=== PATIENT | male | born 2000 | race Two or more races ===

== ENCOUNTER 2022-05-14 05:10 | Emergency (ER) | payer MEDICAID ==
[~2022-05-14] VITALS: Ht 172.7 cm; Wt 80.7 kg
[2022-05-14 06:16] LABS: HEMATOCRIT 44.8 % (36.7-47.1); MEAN CORPUSCULAR HEMOGLOBIN 31.2 uug (23.8-33.4); MEAN CORPUSCULAR VOLUME 91.1 fL (73.0-96.2); PLATELET COUNT (AUTO) 270 K/uL (152-348)
[2022-05-14] MEDS ORDERED: BACITRACIN ZINC OINT 15 GM TUBE TOP ONE (06:30)
[2022-05-14 06:38] LABS: CARBON DIOXIDE 24 mmol/L (21-32); CHLORIDE 104 mmol/L (98-107); CREATININE 1.2 mg/dL (0.6-1.3); ETHANOL 101 MG/DL (0-0); GLUCOSE 110 mg/dL (74-106); POTASSIUM 4.1 mmol/L (3.5-5.1); UREA NITROGEN, BLOOD 11 mg/dL (7-18)
[2022-05-14 06:48] LABS: ALANINE AMINOTRANSFERASE 29 U/L (16-63); ALKALINE PHOSPHATASE 89 U/L (50-136); ASPARTATE AMINOTRANSFERASE 17 U/L (15-37); BILIRUBIN,DIRECT 0.1 mg/dL (0.0-0.2); BILIRUBIN,TOTAL 0.6 mg/dL (0.2-1.0)
[2022-05-14 06:49] LABS: ACETAMINOPHEN < 2.0 ug/mL (10-30)
[2022-05-14] MEDS ORDERED: BACITRACIN ZINC OINT 15 GM TUBE ONE (06:53)
--- NOTE | 2022-05-14 07:14 | NUR ---
Patient is resting comfortably in bed with eyes closed Addendum: 05/14/22 at 0715 by TIA Patient is unable to produce urine at this time.
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
--- NOTE | 2022-05-14 08:00 | NUR ---
Provided warm meal.
--- NOTE | 2022-05-14 08:47 | NUR ---
urine sent to lab.
--- NOTE | 2022-05-14 09:26 | NUR ---
Cristina risk assessment 30 (Secondary diagnosis as alcohol intoxication/ over-estimates... Relayed to Mehul/ Perinatology Physician.
--- NOTE | 2022-05-14 09:32 | NUR ---
Pt says he has desire to kill himself with pills. He thinks he can succeed in taking diabetic pills of his step-mother. Pt has 3 other brothers from the same parents. He has is not in school, no constant work and says that he's not closed to his own family. His mother when he was 3 months old. His current step Mom is his 4th. 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 He denies suffering loss within the last year. No family and friends , no loss of function or identity. 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 Pt denies harming other people, specifically his family at this time.
--- NOTE | 2022-05-14 10:02 | NUR ---
Mehul security site supervisor aware that pt is on 5150 DTS/DTO. No sitter available at this time. No director of security available to be in pt's room at this time. armed security guard within 20 feet distance from pt's room by the ER entrance. All staff take turns in sitting with the patient.
[2022-05-14 10:10] LABS: *BILIRUBIN,URIN NEGATIVE (NEGATIVE); *BLOOD, URINE NEGATIVE (NEGATIVE); *CLARITY,URINE CLEAR (CLEAR); *COLOR,URINE YELLOW (YELLOW); *KETONES,URINE NEGATIVE (NEGATIVE); *UROBILINOGEN,URINE 0.2 E.U./dl (NORMAL); LEUKOCYTE ESTERASE ,URINE NEGATIVE (NEGATIVE); NITRITE, URINE NEGATIVE (NEGATIVE); PH,URINE 5.5 (5.0-8.0); UGLUCOSE NEGATIVE (NEGATIVE)
[2022-05-14 10:23] LABS: *AMPHETAMINE, URINE NEGATIVE (NEGATIVE); *CANNABINOID, URINE POSITIVE (NEGATIVE); *COCCAINE, URINE NEGATIVE (NEGATIVE); *OPIATE, URINE NEGATIVE (NEGATIVE); *PHENCYCLIDINE SCREEN,URINE NEGATIVE (NEGATIVE)
--- NOTE | 2022-05-14 10:30 | NUR ---
Pt started with 1:1 Barbara hawthorne.
--- NOTE | 2022-05-14 14:57 | NUR ---
Placed a call to the crisis team manager valuation: Milton Shannon . ETA 45 mins.
--- NOTE | 2022-05-14 15:36 | NUR ---
Milton/AGATA at the bedside for crisis eval.
--- NOTE | 2022-05-14 19:00 | NUR ---
Spoke with Gabbi, Charge nurse in [facility] Adult unit and no bed available at this time. She says to try tomorrow morning. Addendum: 05/14/22 at 1945 by GEOVANNA Spoke with Gabbi/ [facility] of [facility] (Adult [phone]; no available beds at this time. She says to try in the AM.
--- NOTE | 2022-05-14 19:43 | NUR ---
Cleansed abrasions on bilateral knees with NS. Swabbed with betadine and left open to air.
--- NOTE | 2022-05-14 20:00 | NUR ---
One of the brothers of the patient is at the bedside. He wanted to bring the patient home and explained to him that the patient was placed on a hold and verbalizes understanding.
--- NOTE | 2022-05-14 22:45 | NUR ---
Placed a call at [facility] . Was advised to call tomorrow after 9am.
--- NOTE | 2022-05-14 23:03 | NUR ---
Placed a call at [facility] [place] [address], [address], [place] [address] . Spoke with Jesus Powell at and faxed pt's info at .
--- NOTE | 2022-05-14 23:38 | NUR ---
Contacted Intake of [facility]) and confirmed receipt of 22 pages of pt's report summary, face sheet, [employer] hold and crisis team hold. Kristian, the incoming shift Intake will review the referral.
--- NOTE | 2022-05-15 01:00 | NUR ---
F/u review of referral in [facility] with Intake Kristian. No further requirements at this time.
--- NOTE | 2022-05-15 01:18 | NUR ---
Provided fresh gown and personal items to get a better hygiene and patient complied and remained calm and cooperative.
--- NOTE | 2022-05-15 02:37 | NUR ---
RE: TRANSFER. Spoke with Kristian/ Jesus. Pt will be transferred at [facility]. [id number] [place] [address]. Accepting MD: Dr. Hernández. Report nurse to nurse available at 0330 at .
--- NOTE | 2022-05-15 03:00 | NUR ---
Placed a call to [facility] for [facility] transport and spoke with Daniel. ETA is 0900.
--- NOTE | 2022-05-15 03:30 | NUR ---
Gj7pope given to MARANDA Hilario/ Hayley Claire.
--- NOTE | 2022-05-15 04:53 | NUR ---
Pt's easily arousable. Remained cooperative.
--- NOTE | 2022-05-15 05:04 | NUR ---
Contacted [facility] and verified that there's no specific room or building.
--- NOTE | 2022-05-15 07:26 | NUR ---
recieved patient from MARANDA Ridley in stable condition. Per Khai pt to be transfered to [facility] via [facility] transport, ETA 0900.
--- NOTE | 2022-05-15 09:15 | NUR ---
[facility] unit [id number] has arrived to transport patient to [facility]. Pt in stable condition, report and documents given to transport team.
== END 2022-05-15 09:15 ==
LOC: ER 05:40
DX: R45.851 Suicidal ideations (principal); R45.850 Homicidal ideations; F10.129 Alcohol abuse with intoxication, unspecified; Y90.5 Blood alcohol level of 100-119 mg/100 ml; S10.91XA Abrasion of unspecified part of neck, initial encounter; S80.811A Abrasion, right lower leg, initial encounter; S00.83XA Contusion of other part of head, initial encounter; X58.XXXA Exposure to other specified factors, initial encounter; Y92.89 Other specified places as the place of occurrence of the external cause; Z63.9 Problem related to primary support group, unspecified; Z20.822 Contact with and (suspected) exposure to COVID-19
CPT/HCPCS: 36415; 85025; 93005; G0480